=== PATIENT | male | born 1990 | race Caucasian/White ===

== ENCOUNTER 2020-04-18 11:52 | Emergency (ER) | payer SELFPAY ==
[~2020-04-18] VITALS: Ht 196 cm; Wt 75.4 kg
[2020-04-18 11:57] VITALS: BP 154/66
[2020-04-18] MEDS ORDERED: ONDANSETRON 4 MG (ZOFRAN) ORAL DISSOLVE TAB PO STA (12:13)
[2020-04-18] MEDS ORDERED: FAMOTIDINE 20 MG (PEPCID) TABLET PO ONE (12:15)
[2020-04-18] MEDS ORDERED: FAMO-119 PO (12:20)
[2020-04-18] MEDS ORDERED: ONDA4TAB11 PO (12:20)
--- NOTE | 2020-04-18 12:20 | ED GI ---
General Chief Complaint: Abdominal/GI Problems Stated Complaint: DIZZY; LIGHT-HEADED; N/V Source of Information: Patient Exam Limitations: No Limitations History of Present Illness Date Seen by Provider: Apr 18, 2020 Time Seen by Provider: 12:10 Initial Comments 29-year-old male presents with intermittent nausea and vomiting for the past one week. Initially began very unexpectedly with he states "suddenly vomited first thing in the morning" this was prior to eating breakfast. Patient states he vomited twice at morning, since then he has had repeated episodes of nausea without vomiting and some epigastric pain. Denies history of ulcers or gallbladder problems. Patient does smoke, drink kym, beer and energy drinks daily. Denies history of previous occurrence of similar episodes Allergies and Home Medications Allergies Coded Allergies: No Known Drug Allergies (Unverified , 04/18/20) Patient Home Medication List Home Medication List Reviewed: Yes Review of Systems Review of Systems Constitutional: see HPI; No dizziness, No fever; malaise; No weakness Respiratory: Denies Cough, Denies Shortness of Air Cardiovascular: Denies Chest Pain, Denies Edema Gastrointestinal: See HPI, Abdominal Pain (epigastric, mild); Denies Constipated, Denies Diarrhea; Nausea, Poor Appetite, Vomiting Musculoskeletal: No back pain, No joint pain Skin: No change in color, No lesions Past [id number] Hx Past Med/Social Hx: Reviewed Nursing Past Med/Soc Hx Patient Social History Recent Foreign Travel: No Contact w/Someone Who Travel: No Physical Exam Vital Signs Capillary Refill : Height/Weight/BMI Height: '" Weight: lbs. oz. kg; BMI Method: General Appearance: WD/WN, no apparent distress Respiratory: chest non-tender, lungs clear, normal breath sounds Cardiovascular: regular rate, rhythm, no edema, no gallop, no JVD Gastrointestinal: normal bowel sounds, non tender, soft, no organomegaly, no pulsatile mass Extremities: normal range of motion, non-tender Back: normal inspection, no CVA tenderness Neurologic/Psychiatric: no motor/sensory deficits, alert, normal mood/affect Skin: normal color, warm/dry Departure Impression Primary Impression: Epigastric pain Additional Impression: Nausea & vomiting Qualified Codes: R11.2 - Nausea with vomiting, unspecified Disposition: 01 HOME, SELF-CARE Condition: Improved Departure-Patient Inst. Referrals: [facility] [place] [facility],LOCAL PHYSICIAN (PCP) Primary Care Physician Patient Instructions: Nausea and Vomiting, Adult (DC), Gastritis Add. Discharge Instructions: [facility] ([facility]) to schedule a follow up appointment in 1 week. All discharge instructions reviewed with patient and/or family. Voiced understanding. Scripts Ondansetron (Ondansetron Odt) 4 Mg Tab.rapdis 4 MG PO TID for Nausea, #14 TAB Prov: FISH ROSS DO 04/18/20 Famotidine (Pepcid) 20 Mg Tablet 20 MG PO BID, #30 TAB Prov: FISH ROSS DO 04/18/20 FISH ROSS DO Apr 18, 2020 12:20
[2020-04-18 12:35] LABS: BASOPHILS % (AUTO) 1 % (0-10); EOSINOPHILS % (AUTO) 1 % (0-10); HEMATOCRIT 42 % (40-54); HEMOGLOBIN 14.9 G/DL (13.3-17.7); LYMPHOCYTES % (AUTO) 14 % (12-44); MEAN CORPUSCULAR HEMOGLOBIN 31 PG (25-34); MEAN CORPUSCULAR HGB CONC 36 G/DL (32-36); MEAN CORPUSCULAR VOLUME 87 FL (80-99); MEAN PLATELET VOLUME 9.6 FL (7.4-10.4); MONOCYTES % (AUTO) 4 % (0-12); NEUTROPHILS % (AUTO) 80 % (42-75); PLATELET COUNT 244 10^3/uL (130-400); RED CELL DISTRIBUTION WIDTH 12.6 % (10.0-14.5)
[2020-04-18 12:36] LABS: BASOPHILS # (AUTO) 0.1 10^3/uL (0.0-0.1); EOSINOPHILS # (AUTO) 0.1 10^3/uL (0.0-0.3); LYMPHOCYTES # (AUTO) 1.9 X 10^3 (1.0-4.0); MONOCYTES # (AUTO) 0.5 X 10^3 (0.0-1.0); NEUTROPHILS # (AUTO) 10.4 X 10^3 (1.8-7.8)
[2020-04-18 12:57] LABS: ALANINE AMINOTRANSFERASE 33 U/L (0-55); ALKALINE PHOSPHATASE 89 U/L (40-136); BILIRUBIN,TOTAL 0.8 MG/DL (0.1-1.0); BUN/CREATININE RATIO 8; CALCIUM 9.7 MG/DL (8.5-10.1); CARBON DIOXIDE 25 MMOL/L (21-32); CHLORIDE 103 MMOL/L (98-107); CREATININE SERUM 0.87 MG/DL (0.60-1.30); GFR ESTIMATED > 60; GLUCOSE 113 MG/DL (70-105); POTASSIUM 3.8 MMOL/L (3.6-5.0); SODIUM 139 MMOL/L (135-145); TOTAL PROTEIN 7.4 GM/DL (6.4-8.2)
[2020-04-18 12:58] LABS: ALBUMIN 4.8 GM/DL (3.2-4.5); LIPASE 18 U/L (8-78)
== END 2020-04-18 13:03 | disposition home or self-care (01) ==
LOC: ER FS 11:54
DX: R11.2 Nausea with vomiting, unspecified (principal); R10.13 Epigastric pain; F17.200 Nicotine dependence, unspecified, uncomplicated
CPT/HCPCS: 36415; 80053; 83690; 85025